=== PATIENT | male | born 1955 | race American Indian/Alaskan Native ===

== ENCOUNTER 2018-10-27 14:22 | Inpatient (IN) | payer SELFPAY ==
--- NOTE | 2018-10-27 15:25 | Emergency Department Report ---
Addendum entered and electronically signed by MARYBETH PEÑA MD 10/27/18 22:19: [facility] [address] [place] [address] Cat Scan Report Signed Patient: ARTHUR SCHULER MR#: [id number] : 1955 Acct:[id number] Age/Sex: 63 / M ADM Date: 10/27/18 Loc: 4A A463-[address]: LINDA KENNEY MD Ordering Physician: AMANDA BANKS MD Date of Service: 10/27/18 Procedure(s): CT abdomen pelvis w con Accession Number(s): [id number] cc: AMANDA BANKS MD FINAL REPORT PROCEDURE: CT ABDOMEN PELVIS W CON TECHNIQUE: Computerized axial tomography of the abdomen and pelvis was performed after the IV injection of iodinated nonionic contrast. HISTORY: fall ams abd pain syncope COMPARISON: No prior studies are available for comparison. FINDINGS: This study is limited due to streak artifacts from the arms. Liver, spleen, and adrenal glands are within normal limits. Small simple appearing cystic lesions are noted in bilateral kidneys. Otherwise bilateral kidneys demonstrate normal enhancement without hydronephrosis or perinephric fluid collection. Aorta is of normal caliber. There is no free fluid or free air. Gallbladder is unremarkable. Small bowel loops are within normal limits. Moderate degree residual stool is noted. Appendix is normal. There is evidence of prior small bowel surgery in the right upper quadrant. Vertebral height is normal. IMPRESSION: No acute intra-abdominal or pelvic visceral injury Transcribed By: [facility] [place]ictated By: PAIGE DRAPER Electronically Authenticated By: PAIGE DRAPER Signed Date/Time: 10/27/182215 DD/ 14 TD/TT: 10/27/182214 Addendum entered and electronically signed by MARYBETH PEÑA MD 10/27/18 22:18: [facility] [address] [place] [address] Cat Scan Report Signed Patient: ARTHUR SCHULER MR#: [id number] : 1955 Acct:[id number] Age/Sex: 63 / M ADM Date: 10/27/18 Loc: ED Attending Dr: Ordering Physician: AMANDA BANKS MD Date of Service: 10/27/18 Procedure(s): CT head/brain wo con Accession Number(s): [id number] cc: AMANDA BANKS MD FINAL REPORT EXAM: CT HEAD/BRAIN WO CON HISTORY: fall ams TECHNIQUE: 2.5 millimeter axial images from the skullbase to the vertex. Comparison: None FINDINGS: There is no evidence of an acute intracranial process, intracranial hemorrhage or mass effect. Ventricular size is concordant with the degree of atrophy. The visu alized portions of the orbits, paranasal and mastoid sinuses are unremarkable. The bony structures are unremarkable. There is no evidence of fracture. IMPRESSION: 1. No evidence of an acute intracranial process, intracranial hemorrhage or mass effect. 2. No evidence of fracture. Transcribed By: ED D ictated By: MAKENZIE GARDNER MD Electronically Authenticated By: MAKENZIE GARDNER MD Signed Date/Time: 10/27/181819 DD/ 17 TD/TT: 10/27/181817 Original Note: <AMANDA BANKS - Last Filed: 10/27/18 19:32> ED General Adult HPI - General Chief complaint: Altered Mental Status Stated complaint: AMS Time Seen by Provider: 10/27/18 14:58 Source: patient, EMS (ems notes not available at time of chart dictation), RN notes reviewed Mode of arrival: Stretcher Limitations: Altered Mental Status - History of Present Illness Initial comments: This is a 63-year-old gentleman who is not known to this provider previously. He has a history of hypertension, dementia and behavioral disturbances. As per triage documentation, patient was found on the floor by a certified nurse malt specifications control assistant unresponsive. The patient apparently became more alert during transport. Only complained of arthritis prehospital. In the emergency room, the patient has no recollection of what happened. On review of systems, he endorses abdominal pain that moves up to his shoulder blades and chest pain. He can't describe the nature of the pain, qualitative nature of the pain, exacerbating or relieving factors. No family or friends currently available for collateral information. The patient is asking to eat currently. -: unknown Location: chest, abdomen Severity scale (0 -10): 10 Consistency: other Improves with: other Worsens with: other Associated Symptoms: confusion, chest pain, other - Related Data Allergies Allergy/AdvReac Type Severity Reaction Status Date / Time No Known Allergies Allergy Unverified 10/27/18 14:42 ED Review of Systems Comment: Unobtainable due to pts medical conditions Cardiovascular: chest pain Gastrointestinal: abdominal pain Musculoskeletal: myalgia ED Past Medical Hx - Past Medical History Hx Hypertension: Yes Hx Psychiatric Treatment: Yes (Dementia, Behavioral distr.) - Social History Smoking Status: Current Some Day Smoker Substance Use Type: Alcohol ED Physical Exam - General Limitations: Altered Mental Status General appearance: alert - Head Head exam: Present: atraumatic, normocephalic - Eye Eye exam: Present: normal appearance, EOMI, other (visual acuity intact to finger counting, color perception, reading at a close distance). Absent: nystagmus - ENT ENT exam: Present: normal exam, normal orophraynx, mucous membranes moist, normal external ear exam - Neck Neck exam: Present: normal inspection, full ROM. Absent: tenderness, meningismus - Respiratory Respiratory exam: Present: normal lung sounds bilaterally. Absent: respiratory distress - Cardiovascular Cardiovascular Exam: Present: regular rate, normal rhythm, normal heart sounds. Absent: bradycardia, tachycardia, irregular rhythm, systolic murmur, diastolic murmur, rubs, gallop - GI/Abdominal GI/Abdominal exam: Present: soft, other (Donnelly surgical scars noted, no redness, pus or streaking). Absent: distended, tenderness, guarding, rebound, rigid, pulsatile mass - Rectal Rectal exam: Present: deferred - Extremities Exam Extremities exam: Present: normal inspection, full ROM, other (2+ pulses noted in the bilateral upper, lower extremities. Compartments soft. No long bony tenderness. The pelvis is stable.). Absent: calf tenderness - Back Exam Back exam: Present: normal inspection, full ROM. Absent: tenderness, CVA tenderness (R), paraspinal tenderness, vertebral tenderness - Neurological Exam Neurological exam: Present: alert, abnormal gait (unsteady gait), other (Extraocular movements intact. Tongue midline. No facial droop. Facial s ensation intact to light touch in the V1, V2, V3 distribution bilaterally. 5 and 5 strength in 4 extremities.. Sensation is intact to light touch in 4 extremities.). Absent: motor sensory deficit - Skin Skin exam: Present: warm, dry, intact, normal color. Absent: rash ED Course - Reevaluation(s) Reevaluation #1: 10/27/18 19:30 Differential diagnosis, including not limited to: Intracranial injury, cervical spine injury, pneumonia, acute coronary syndrome, pulmonary embolus, intra-abdom inal infection, urinary tract infection, orthostasis, vagal event, structural cardiac disease Assessment and plan: 63-year-old gentleman, poor historian, demented, hypertension with behavioral disturbance, with prehospital report of unresponsiveness, now resolved, with an articulated complaint of chest pain and abdominal pain. The patient is a poor historian. His physical examination is unremarkable. He is protecting his airway at this time. He is not tachycardic. He is not hypoxic. Nevertheless, CT scan of the brain, cervical spine, chest, abdomen, pelvis urinalysis ordered and pending at this time. EKG limited by motion artifact. No prior for comparison. Reevaluation #2: 10/27/18 19:32 CT scan of the brain is negative for acute disease. CT scan of the cervical spine is negative for acute disease. Care is transferred to the oncoming ER physician, Dr. Peña, to follow up on urinalysis, CT scan of the chest, CT scan of abdomen and pelvis, repeat troponin, repeat EKG. Would prefer to admit the patient for cardiac risk stratification and syncope evaluation given that he is a poor historian, and is unlikely, unreliable to follow up as an outpatient. ED Medical Decision Making - Lab Data Result diagrams: 10/27/18 15:31 10/27/18 15:31 Vital Signs 10/27/18 10/27/18 10/27/18 14:34 15:22 15:45 Temperature 97.1 F L 98.5 F Pulse Rate 80 90 Respiratory 17 16 16 Rate Blood Pressure 158/93 O2 Sat by Pulse 99 98 Oximetry Lab Results 10/27/18 10/27/18 10/27/18 Range/Units 15:14 15:31 15:31 WBC 8.3 (4.5-11.0) K/mm3 RBC 4.45 (3.65-5.03) M/mm3 Hgb 13.2 (11.8-15.2) gm/dl Hct 38.7 (35.5-45.6) % MCV 87 (84-94) fl MCH 30 (28-32) pg MCHC 34 (32-34) % RDW 14.2 (13.2-15.2) % Plt Count 223 (140-440) K/mm3 Lymph % (Auto) 23.0 (13.4-35.0) % Finney % (Auto) 13.8 H (0.0-7.3) % Eos % (Auto) 2.8 (0.0-4.3) % Baso % (Auto) 0.8 (0.0-1.8) % Lymph # 1.9 (1.2-5.4) K/mm3 Finney # 1.2 H (0.0-0.8) K/mm3 Eos # 0.2 (0.0-0.4) K/mm3 Baso # 0.1 (0.0-0.1) K/mm3 Seg Neutrophils % 59.6 (40.0-70.0) % Seg Neutrophils # 5.0 (1.8-7.7) K/mm3 PT 14.1 (12.2-14.9) Sec. INR 1.03 (0.87-1.13) APTT 29.2 (24.2-36.6) Sec. Sodium (137-145) mmol/L Potassium (3.6-5.0) mmol/L Chloride (98-107) mmol/L Carbon Dioxide (22-30) mmol/L Anion Gap mmol/L BUN (9-20) mg/dL Creatinine (0.8-1.5) mg/dL Estimated GFR ml/min BUN/Creatinine Ratio % Glucose (75-100) mg/dL POC Glucose 133 H (70-105) Lactic Acid (0.7-2.0) mmol/L Calcium (8.4-10.2) mg/dL Magnesium (1.7-2.3) mg/dL Total Bilirubin (0.1-1.2) mg/dL AST (5-40) units/L ALT (7-56) units/L Alkaline Phosphatase (35-129) units/L Troponin T (0.00-0.029) ng/mL Total Protein (6.3-8.2) g/dL Albumin (3.9-5) g/dL Albumin/Globulin Ratio % Lipase (13-60) units/L TSH (0.270-4.200) mlU/mL Salicylates (2.8-20.0) mg/dL Acetaminophen (10.0-30.0) ug/mL Plasma/Serum Alcohol (0-0.07) % 10/27/18 10/27/18 10/27/18 Range/Units 15:31 15:31 15:31 WBC (4.5-11.0) K/mm3 RBC (3.65-5.03) M/mm3 Hgb (11.8-15.2) gm/dl Hct (35.5-45.6) % MCV (84-94) fl MCH (28-32) pg MCHC (32-34) % RDW (13.2-15.2) % Plt Count (140-440) K/mm3 Lymph % (Auto) (13.4-35.0) % Finney % (Auto) (0.0-7.3) % Eos % (Auto) (0.0-4.3) % Baso % (Auto) (0.0-1.8) % Lymph # (1.2-5.4) K/mm3 Finney # (0.0-0.8) K/mm3 Eos # (0.0-0.4) K/mm3 Baso # (0.0-0.1) K/mm3 Seg Neutrophils % (40.0-70.0) % Seg Neutrophils # (1.8-7.7) K/mm3 PT (12.2-14.9) Sec. INR (0.87-1.13) APTT (24.2-36.6) Sec. Sodium 139 (137-145) mmol/L Potassium 3.9 (3.6-5.0) mmol/L Chloride 103.5 (98-107) mmol/L Carbon Dioxide 25 (22-30) mmol/L Anion Gap 14 mmol/L BUN 9 (9-20) mg/dL Creatinine 0.6 L (0.8-1.5) mg/dL Estimated GFR > 60 ml/min BUN/Creatinine Ratio 15 % Glucose 122 H (75-100) mg/dL POC Glucose (70-105) Lactic Acid 1.20 (0.7-2.0) mmol/L Calcium 9.0 (8.4-10.2) mg/dL Magnesium 2.00 (1.7-2.3) mg/dL Total Bilirubin 0.80 (0.1-1.2) mg/dL AST 16 (5-40) units/L ALT 14 (7-56) units/L Alkaline Phosphatase 58 (35-129) units/L Troponin T < 0.010 (0.00-0.029) ng/mL Total Protein 6.8 (6.3-8.2) g/dL Albumin 3.8 L (3.9-5) g/dL Albumin/Globulin Ratio 1.3 % Lipase 21 (13-60) units/L TSH 3.920 (0.270-4.200) mlU/mL Salicylates (2.8-20.0) mg/dL Acetaminophen (10.0-30.0) ug/mL Plasma/Serum Alcohol (0-0.07) % 10/27/18 10/27/18 10/27/18 Range/Units 15:31 15:31 15:31 WBC (4.5-11.0) K/mm3 RBC (3.65-5.03) M/mm3 Hgb (11.8-15.2) gm/dl Hct (35.5-45.6) % MCV (84-94) fl MCH (28-32) pg MCHC (32-34) % RDW (13.2-15.2) % Plt Count (140-440) K/mm3 Lymph % (Auto) (13.4-35.0) % Finney % (Auto) (0.0-7.3) % Eos % (Auto) (0.0-4.3) % Baso % (Auto) (0.0-1.8) % Lymph # (1.2-5.4) K/mm3 Finney # (0.0-0.8) K/mm3 Eos # (0.0-0.4) K/mm3 Baso # (0.0-0.1) K/mm3 Seg Neutrophils % (40.0-70.0) % Seg Neutrophils # (1.8-7.7) K/mm3 PT (12.2-14.9) Sec. INR (0.87-1.13) APTT (24.2-36.6) Sec. Sodium (137-145) mmol/L Potassium (3.6-5.0) mmol/L Chloride (98-107) mmol/L Carbon Dioxide (22-30) mmol/L Anion Gap mmol/L BUN (9-20) mg/dL Creatinine (0.8-1.5) mg/dL Estimated GFR ml/min BUN/Creatinine Ratio % Glucose (75-100) mg/dL POC Glucose (70-105) Lactic Acid (0.7-2.0) mmol/L Calcium (8.4-10.2) mg/dL Magnesium (1.7-2.3) mg/dL Total Bilirubin (0.1-1.2) mg/dL AST (5-40) units/L ALT (7-56) units/L Alkaline Phosphatase (35-129) units/L Troponin T (0.00-0.029) ng/mL Total Protein (6.3-8.2) g/dL Albumin (3.9-5) g/dL Albumin/Globulin Ratio % Lipase (13-60) units/L TSH (0.270-4.200) mlU/mL Salicylates < 0.3 L (2.8-20.0) mg/dL Acetaminophen < 5.0 L (10.0-30.0) ug/mL Plasma/Serum Alcohol < 0.01 (0-0.07) % - EKG Data -: EKG Interpreted by La EKG shows normal: sinus rhythm Rate: normal - EKG Data When compared to previous EKG there are: previous EKG unavailable 10/27/18 19:33 Artifact, sinus, 81 bpm, borderline left axis deviation, poor R wave progression, sinus, not consistent with ST elevation myocardial infarction, ther e is no prior EKG available for comparison. - Radiology Data Radiology results: pending, report reviewed Noncontrast CT scan of the brain is negative for acute disease. Noncontrast CT scan of the cervical spine is negative for acute disease. ED Disposition Clinical Impression: Syncope Qualifiers: Syncope type: unspecified Qualified Code(s): R55 - Syncope and collapse Chest pain Qualifiers: Chest pain type: unspecified Qualified Code(s): R07.9 - Chest pain, unspecified Disposition: 09 OP ADMIT IP TO THIS HOSP Condition: Stable Instructions: Syncope (ED), Chest Pain (ED) Referrals: PRIMARY CAREMD [Primary Care Provider] - 3-5 Days <MARYBETH PEÑA - Last Filed: 10/27/18 21:34> ED Review of Systems ROS: Stated complaint: AMS Other details as noted in HPI ED Course Vital Signs 10/27/18 10/27/18 10/27/18 14:34 15:22 15:45 Temperature 97.1 F L 98.5 F Pulse Rate 80 90 Respiratory 17 16 16 Rate Blood Pressure 158/93 O2 Sat by Pulse 99 98 Oximetry ED Medical Decision Making - Lab Data Result diagrams: 10/27/18 15:31 10/27/18 15:31 - Medical Decision Making Patient is a 63-year-old [place]ales[place] male who had a syncopal episode/episode of loss of consciousness and unresponsiveness at home earlier today. When the patient regained consciousness is complaining of some chest discomfort. Patient to be admitted to the hospitalist service at this time. His CT is within normal limits. CTA of the chest pending.. Dr Kenney aware Critical Care Time: Yes (30) Critical care attestation.: If time is entered above; I have spent that time in minutes in the direct care of this critically ill patient, excluding procedure time. ED Disposition Is pt being admited?: Yes Time of Disposition: 21:34
[2018-10-27 16:05] LABS: Basophils # (Auto) 0.1 K/mm3 (0.0-0.1); Basophils % (Auto) 0.8 % (0.0-1.8); Eosinophils # (Auto) 0.2 K/mm3 (0.0-0.4); Eosinophils % (Auto) 2.8 % (0.0-4.3); Hematocrit 38.7 % (35.5-45.6); Hemoglobin 13.2 gm/dl (11.8-15.2); Lymphocytes # (Auto) 1.9 K/mm3 (1.2-5.4); Mean Corpuscular HGB Conc 34 % (32-34); Mean Corpuscular Volume 87 fl (84-94); Monocytes # (Auto) 1.2 K/mm3 (0.0-0.8); Monocytes % (Auto) 13.8 % (0.0-7.3); Platelet Count 223 K/mm3 (140-440); Red Blood Count 4.45 M/mm3 (3.65-5.03); Red Cell Distribution Width 14.2 % (13.2-15.2)
[2018-10-27 16:19] LABS: INR 1.03 (0.87-1.13)
[2018-10-27 16:20] LABS: Partial Thromboplastin Time 29.2 Sec. (24.2-36.6)
[2018-10-27 16:27] LABS: Alanine Aminotransferase 14 units/L (7-56); Albumin 3.8 g/dL (3.9-5); BUN/Creatinine Ratio 15; Blood Urea Nitrogen 9 mg/dL (9-20); Hemolysis Index 26
--- NOTE | 2018-10-27 18:20 | Cat Scan Report ---
FINAL REPORT EXAM: CT HEAD/BRAIN WO CON HISTORY: fall ams TECHNIQUE: 2.5 millimeter axial images from the skullbase to the vertex. Comparison: None FINDINGS: There is no evidence of an acute intracranial process, intracranial hemorrhage or mass effect. Ventricular size is concordant with the degree of atrophy. The visualized portions of the orbits, paranasal and mastoid sinuses are unremarkable. The bony structures are unremarkable. There is no evidence of fracture. IMPRESSION: 1. No evidence of an acute intracranial process, intracranial hemorrhage or mass effect. 2. No evidence of fracture.
[2018-10-27] MEDS ORDERED: ATIVAN IV ONE (18:45)
[2018-10-27] MEDS ORDERED: ATIVAN ONE (18:55)
[2018-10-27 20:00] LABS: Bilirubin,Urine SM (Negative); Blood,Urine NEG (Negative); Color,Urine Amber (Yellow); Mucus,Urine 3+ /HPF
[2018-10-27 20:09] LABS: Ictotest,Urine Negative (Negative)
--- NOTE | 2018-10-27 22:16 | Cat Scan Report ---
FINAL REPORT PROCEDURE: CT ABDOMEN PELVIS W CON TECHNIQUE: Computerized axial tomography of the abdomen and pelvis was performed after the IV inject ion of iodinated nonionic contrast. HISTORY: fall ams abd pain syncope COMPARISON: No prior studies are available for comparison. FINDINGS: This study is limited due to streak artifacts from the arms. Liver, spleen, and adrenal glands are wi thin normal limits. Small simple appearing cystic lesions are noted in bilateral kidneys. Otherwise b ilateral kidneys demonstrate normal enhancement without hydronephrosis or perinephric fluid collectio n. Aorta is of normal caliber. There is no free fluid or free air. Gallbladder is unremarkable. Small bowel loops are within normal limits. Moderate degree residual stool is noted. Appendix is normal. T here is evidence of prior small bowel surgery in the right upper quadrant. Vertebral height is normal . IMPRESSION: No acute intra-abdominal or pelvic visceral injury
[2018-10-27] MEDS ORDERED: NARCAN 0.4 MG/1 ML IV ONE (22:25)
[2018-10-27] MEDS ORDERED: TYLENOL PO PRN (22:27)
[2018-10-27] MEDS ORDERED: ZOFRAN IV PRN (22:29)
[2018-10-28 01:05] LABS: Creatine Kinase MB 2.4 ng/mL (0.0-4.0)
[2018-10-28 06:01] LABS: Creatine Kinase MB 2.7 ng/mL (0.0-4.0)
--- NOTE | 2018-10-28 08:01 | History and Physical Report ---
CHIEF COMPLAINT: Altered mental status. HISTORY OF PRESENT ILLNESS: The patient is a 63-year-old male who was found on the floor unresponsive by a nurse at the facility where the patient is staying. It was not clear how long the patient was on the ground. There was no history of chest pain. There was no history of shortness of breath, nausea, vomiting, fever, or history of abdominal pain prior to being unresponsive. The patient was brought to the Emergency Room and did not remember what happened and was not able to give proper account of how he ended up on the floor, but the patient was pointing to abdominal pain that moves up to his shoulder blades. PAST MEDICAL HISTORY: Pertinent for hypertension and dementia. PAST SURGICAL HISTORY: Noncontributory. FAMILY HISTORY: Noncontributory. SOCIAL HISTORY: The patient smokes cigarettes, drinks alcohol. Does not use illicit drugs. MEDICATIONS: The patient's home medications are not known at this time. ALLERGIES: There are no known drug allergies. REVIEW OF SYSTEMS: CONSTITUTIONAL: There is no fever, no chills, no diaphoresis. HEENT: There is no headache or sore throat. CARDIOVASCULAR SYSTEM: There is no chest pain or orthopnea. RESPIRATORY SYSTEM: There is no shortness of breath or cough. GASTROINTESTINAL SYSTEM: There is no nausea, no vomiting. Abdominal pain present. No diarrhea or constipation. NEUROLOGICAL SYSTEM: Unresponsiveness with altered mental status noted. MUSCULOSKELETAL SYSTEM: There is no joint pain or swelling. DERMATOLOGICAL SYSTEM: There is no skin rash or itching. GENITOURINARY SYSTEM: There is no dysuria, hematuria, or flank pain. Rest of system review is normal. PHYSICAL EXAMINATION: GENERAL: At the time of exam, the patient was found to lethargic and responding to noxious stimulus and not in acute distress. VITAL SIGNS: At the initial time of presentation showed temperature of 97.1 degrees Fahrenheit, pulse of 80, respirations 17, blood pressure 158/93, O2 sat of 99% on room air. HEENT: Show pupils to be pinpoint and reactive to light and accommodating. Extraocular muscles are intact. NECK: Supple with no JVD or carotid bruit. CARDIOVASCULAR SYSTEM: Showed normal first and second heart sounds with no gallops or murmurs. RESPIRATORY SYSTEM: Show good air entry on both sides of the lungs with no abnormal breath sounds. GASTROINTESTINAL SYSTEM: Show abdomen to be full, soft, nontender with no organomegaly or rigidity. NEUROLOGIC: Shows no focal deficits. MUSCULOSKELETAL SYSTEM: Show no joint swelling or tenderness. DERMATOLOGICAL SYSTEM: Show no skin rash. GENITOURINARY SYSTEM: Showing no costovertebral angle tenderness. PERTINENT LABORATORY DATA AND IMAGING STUDIES: The patient has CT of the abdomen and pelvis done that shows no acute intra-abdominal or pelvic viscera injury. Also, the patient has CT of the cervical spine done with results pending and also the patient has CT angiogram of the chest done with result pending. The patient had a CT of the head without contrast done that shows no evidence of an acute intracranial process or intracranial hemorrhage or mass effect and no evidence of fracture was seen. Lab results: The patient had CBC done that came back unremarkable except for elevated monocyte count of 13.8 on CBC differential. The patient's coagulation studies were unremarkable and chemistry came back unremarkable. The patient's cardiac enzymes came back unremarkable. Urinalysis show elevated urine specific gravity of 1.058, otherwise unremarkable urine. Toxicology was unremarkable. DIAGNOSES: 1. Unresponsiveness. 2. Abdominal pain. 3. Chest pain. PLAN OF ACTION: 1. The patient will be admitted to telemetry. 2. The patient will have Cardiology consult with Dr. Angus Ridley because of chest pain and unresponsiveness. 3. The patient will have cardiac enzymes involving troponin checked serially x 2 more levels. 4. The patient will have 2D echo done this morning because of unresponsiveness and chest pain. 5. The patient will have a urine drug screen done. 6. The patient will have one dose of Narcan or naloxone 0.4 mg done because of suspected narcotic overdose. 7. The patient will be on nitro paste half inch to anterior chest wall q.i.d. because of chest pain and will be on IV Zofran 4 mg every 8 hours as needed for nausea and vomiting. 8. The patient will be on aspirin 325 mg by mouth daily and will be on oxygen by nasal cannula 2 liter per minute. JOB# [id number] OCN/NTS
--- NOTE | 2018-10-28 10:45 | Event Note ---
Date: 10/28/18 full consult dictated thx
[2018-10-28] MEDS: NACL 0.9% 1000 ML 1,000 ML IV SCH (13:51)
[2018-10-28] MEDS: ASPIRIN PO SCH (14:01)
--- NOTE | 2018-10-28 16:47 | Progress Note ---
Assessment and Plan Assessment and plan: Patient is a 63 yo Black Man from [place] with a history of hypertension and dementia with behavior disturbances who presented to [facility] ED after being found unresponsive on the floor by nurse aid at the [place]. Patient is confused and poor historian. * CT abd/pelvis with contrast IMPRESSION: No acute intra-abdominal or pelvic visceral injury * CT head wo contrast IMPRESSION: 1. No evidence of an acute intracranial process, intracranial hemorrhage or mass effect. 2. No evidence of fracture. * CTA chest pending * CT c-spine pending * 2D ECHO study quality is technically difficult, poor accoustic windows, global left ventricular wall motion and contractility are within normal limits, estimated EF 50-55%, left ventricular diastolic filling pattern is consistent with pseudonormalization -Acute metabolic encephalopathy, work up in progress -Chest pains by report: Cardiology consulted -Advance Dementia; supportive care prolonged inpatient services 32 minutes History Interval history: Patient was seen and examined. Follow-up on current diagnosis of AMS. Overnight uneventful. Patient denies any chest pain, shortness breath, nausea/vomiting or severe headaches. Imaging, nursing note, chart, labs and old chart reviewed. Discussed with patient. Hospitalist Physical - Physical exam Narrative exam: Gen: WDWN, NAD, Awake, Alert, Orientated x 1 HEENT: NCAT, EOMI, PERRL, OP Clear Neck: supple, no adenopathy, no thyromegaly, no JVD CVS/Heart: RRR, normal S1S2, pulses present bilaterally Chest/Lungs: CTA B, Symmetrical chest expansion, good air entry bilaterally GI/Abdomen: soft, NTND, good bowel sounds, no guarding or rebound /Bladder: no suprapubic tenderness, no CVA or paraspinal tenderness Extermity/Skin: no c/c/e, no obvious rash MSK: FROM x 4 Neuro: CN 2-12 grossly intact, no new focal deficits Psych: confused - Constitutional Vitals: Temp Pulse Resp BP Pulse Ox 97.0 F L 70 18 153/90 97 10/28/18 04:09 10/28/18 10:00 10/28/18 04:09 10/28/18 04:09 10/28/18 04:09 Results - Labs CBC & Chem 7: 10/27/18 15:31 10/27/18 15:31 Labs: Laboratory Last Values WBC 8.3 K/mm3 (4.5-11.0) 10/27/18 15: RBC 4.45 M/mm3 (3.65-5.03) 10/27/18 15: Hgb 13.2 gm/dl (11.8-15.2) 10/27/18 15: Hct 38.7 % (35.5-45.6) 10/27/18 15: MCV 87 fl (84-94) 10/27/18: MCH 30 pg (28-32) 10/27/18 15: MCHC 34 % (32-34) 10/27/18 15: RDW 14.2 % (13.2-15.2) 10/27/18: Plt Count 223 K/mm3 (140-440) 10/27/18: Lymph % (Auto) 23.0 % (13.4-35.0) 10/27/18: [place] % (Auto) 13.8 % (0.0-7.3) H 10/27/18: Eos % (Auto) 2.8 % (0.0-4.3) 10/27/18: Baso % (Auto) 0.8 % (0.0-1.8) 10/27/18: Lymph # 1.9 K/mm3 (1.2-5.4) 10/27/18 15: [place] # 1.2 K/mm3 (0.0-0.8) H 10/27/18: Eos # 0.2 K/mm3 (0.0-0.4) 10/27/18: Baso # 0.1 K/mm3 (0.0-0.1) 10/27/18 15: Seg Neutrophils % 59.6 % (40.0-70.0) 10/27/18: Seg Neutrophils # 5.0 K/mm3 (1.8-7.7) 10/27/18 15: PT 14.1 Sec. (12.2-14.9) 10/27/18 15: INR 1.03 (0.87-1.13) 10/27/18 15: APTT 29.2 Sec. (24.2-36.6) 10/27/18 15:31 Sodium 139 mmol/L (137-145) 10/27/18 15:31 Potassium 3.9 mmol/L (3.6-5.0) 10/27/18 15:31 Chloride 103.5 mmol/L (98-107) 10/27/18 15:31 Carbon Dioxide 25 mmol/L (22-30) 10/27/18 15:31 Anion Gap 14 mmol/L 10/27/18 15:31 BUN 9 mg/dL (9-20) 10/27/18 15:31 Creatinine 0.6 mg/dL (0.8-1.5) L 10/27/18 15:31 Estimated GFR > 60 ml/min 10/27/18 15:31 BUN/Creatinine Ratio 15 % 10/27/18 15:31 Glucose 122 mg/dL (75-100) H 10/27/18 15:31 POC Glucose 133 (70-105) H 10/27/18 15:14 Lactic Acid 1.20 mmol/L (0.7-2.0) 10/27/18 15:31 Calcium 9.0 mg/dL (8.4-10.2) 10/27/18 15:31 Magnesium 2.00 mg/dL (1.7-2.3) 10/27/18 15:31 Total Bilirubin 0.80 mg/dL (0.1-1.2) 10/27/18 15:31 AST 16 units/L (5-40) 10/27/18 15:31 ALT 14 units/L (7-56) 10/27/18 15:31 Alkaline Phosphatase 58 units/L (35-129) 10/27/18 15:31 Total Creatine Kinase 193 units/L (55-170) H 10/28/18 05:03 CK-MB (CK-2) 2.7 ng/mL (0.0-4.0) 10/28/18 05:03 CK-MB (CK-2) Rel Index 1.3 (0-4) 10/28/18 05:03 Troponin T < 0.010 ng/mL (0.00-0.029) 10/28/18 05:03 Total Protein 6.8 g/dL (6.3-8.2) 10/27/18 15:31 Albumin 3.8 g/dL (3.9-5) L 10/27/18 15:31 Albumin/Globulin Ratio 1.3 % 10/27/18 15:31 Lipase 21 units/L (13-60) 10/27/18 15:31 TSH 3.920 mlU/mL (0.270-4.200) 10/27/18 15:31 Urine Color [place] (Yellow) 10/27/18 19:34 Urine Turbidity Clear (Clear) 10/27/18 19:34 Urine pH 5.0 (5.0-7.0) 10/27/18 19:34 Ur Specific [place] 1.058 (1.003-1.030) H 10/27/18 19:34 Urine Protein 30 mg/dl mg/dL (Negative) 10/27/18 19:34 Urine Glucose (UA) Neg mg/dL (Negative) 10/27/18 19:34 Urine Ketones Neg mg/dL (Negative) 10/27/18 19:34 Urine Blood Neg (Negative) 10/27/18 19:34 Urine Nitrite Neg (Negative) 10/27/18 19:34 Urine Bilirubin Sm (Negative) 10/27/18 19:34 Urine Ictotest Negative (Negative) 10/27/18 19:34 Urine Urobilinogen 4.0 mg/dL (<2.0) 10/27/18 19:34 Ur Leukocyte Esterase Neg (Negative) 10/27/18 19:34 Urine WBC (Auto) 3.0 /HPF (0.0-6.0) 10/27/18 19:34 Urine RBC (Auto) 3.0 /HPF (0.0-6.0) 10/27/18 19:34 Urine Mucus 3+ /HPF 10/27/18 19:34 Salicylates < 0.3 mg/dL (2.8-20.0) L 10/27/18 15:31 Acetaminophen < 5.0 ug/mL (10.0-30.0) L 10/27/18 15:31 Plasma/Serum Alcohol < 0.01 % (0-0.07) 10/27/18 15:31 Nutrition/Malnutrition Assess - Dietary Evaluation Nutrition/Malnutrition Findings: Nutrition Notes Start: 10/28/18 10:43 Freq: Status: Active Protocol: Document 10/28/18 10:43 ER (Rec: 10/28/18 10:51 ER [id number]) Co-Sign 10/28/18 10:43 LP Nutrition Notes Need for Assessment generated from: document control manager Initial or Follow up Brief Note Current Diagnosis Hypertension Other Pertinent Diagnosis AMS, dementia Current Diet Cardiac Diet Subjective/Other Information RN screen for MST. Pt. ate 100 % of breakfast. Unable to obtain weight or energy intake history from pt. d/t pt. having AMS. Pt. does not appear to be malnourished. Nutrition Intervention Follow-Up By: 11/01/18 Revisit per MD consult or patient Sign Off request: Additional Comments F/U: Assessment needs and intakes
[2018-10-28] MEDS: GEODON IM PRN (21:45)
--- NOTE | 2018-10-28 21:59 | Consultation ---
CARDIOLOGY CONSULTATION REFERRING PHYSICIAN: Dr. Juarez REASON FOR CONSULTATION: Advice and opinion regarding change in orientation, questionable chest pain. HISTORY OF PRESENT ILLNESS: The patient is a 63-year-old -[place] gentleman referred here from [place]. He has dementia, behavioral disturbance. He is incoherent, comfortable, responses to questions and states he has no symptoms whatsoever, seen on telemetry, not able to give a history, entirely disoriented, but does deny chest pain or shortness of breath. Now appears comfortable in bed, nurse is at bedside as well. So history is obtained as per chart. ALLERGIES: No known drug, food, or environmental allergies. REVIEW OF SYSTEMS: As per HPI. No rashes, leg swelling, hematochezia, melena, or hemoptysis. SOCIAL HISTORY: Smoker, occasional alcohol use. His underlying psychiatric disorder is unknown or is unknown to me at this time. FAMILY HISTORY: Unknown. PHYSICAL EXAMINATION: VITAL SIGNS: Blood pressure is 150/90, he is afebrile. Tele reveals sinus rhythm in the 60s, O2 sat is 100% on room air. GENERAL: This is a middle-aged -Sudanese gentleman, no apparent distress, oriented x 3. HEENT: Sclerae are anicteric. NECK: Supple. No mass or JVD. CHEST: Clear to auscultation bilaterally. Good air movement. CARDIOVASCULAR: ____ rhythm, S1, S2. ABDOMEN: Soft, nontender, nondistended. Normoactive bowel sounds in all 4 quadrants. No mass or bruits. EXTREMITIES: No cyanosis, clubbing or edema. Good peripheral pulses. SKIN: Intact. No rashes. LABORATORY DATA AND IMAGING STUDIES: ECG reveals normal sinus rhythm, normal axis, no ST segment shift, heart rate of 68. Cardiac enzymes are negative x 2. CBC and CMP are essentially unremarkable aside from elevated glucose. Toxicology is negative for salicylates, acetaminophen and alcohol. He underwent a head CT, which is unremarkable. CT abdomen and pelvis is also unremarkable. CT cervical spine is also unremarkable. ASSESSMENT: In summary, the patient is a 63-year-old gentleman, 1. Unresponsiveness. 2. Question of abdominal pain. 3. Questionable chest pain. PLAN: He is clinically stable, very poor historian due to dementia and behavioral disturbances, unknown psychiatric diagnosis, appears comfortable. Echocardiogram is pending. EKG is unremarkable. Cardiac enzymes are negative x 2. Given his mental state, I believe a conservative approach is reasonable and appropriate. I do not see any need for any further testing from a cardiac perspective. We will follow along. Thank you for this consultation. Continue baby aspirin. Thank you for this consultation. We will be happy to follow along with you. JOB# [id number] SBM/NTS
[2018-10-28] MEDS ORDERED: APRESOLINE IV PRN (22:23)
[2018-10-29] MEDS: NITRO-BID 2% TP SCH ×5 (01:02→18:31)
[2018-10-29] MEDS: ASPIRIN PO SCH (10:30)
--- NOTE | 2018-10-29 10:45 | Progress Note ---
Assessment and Plan Assessment: Unresponsiveness AMS Questionable abdominal pain Questionable chest pain Dementia ? Psych d/o Plan: AMI ruled out. Echo reviewed - TDS, EF 50-55%, pseudonormalization. Currently stable cardiac status. Nothing further to add from cardiac perspective at this time. Will sign off. The patient has been seen in conjunction with Dr. Carlos Enrique Solano who agrees with the assessment and plan of care. Subjective Date of service: 10/29/18 Principal diagnosis: AMS Interval history: pt resting in bed, confused, restrained, no apparent distress. Objective Last Vital Signs Temp 98.3 F 10/29/18 08:30 Pulse 80 10/29/18 10:30 Resp 18 10/29/18 08:30 BP 169/98 10/29/18 10:30 Pulse Ox 99 10/29/18 08:43 - Physical Examination General: No Apparent Distress HEENT: Positive: PERRL, Normocephaly, Mucus Membranes Moist Neck: Positive: neck supple, trachea midline Cardiac: Positive: Reg Rate and Rhythm, S1/S2 Lungs: Positive: clear to auscultation Neuro: Positive: Grossly Intact, Other (confused) Abdomen: Negative: Tender Skin: Negative: Rash Musculoskeletal: No Pain Extremities: Absent: edema - Telemetry EKG Rhythm: Sinus Rhythm
--- NOTE | 2018-10-29 15:28 | Progress Note ---
Assessment and Plan Assessment and plan: Patient is a 63 yo Black Man from [place] with a history of hypertension and dementia with behavior disturbances who presented to [facility] ED after being found unresponsive on the floor by nurse aid at the [place]. Patient is confused and poor historian. * CT abd/pelvis with contrast IMPRESSION: No acute intra-abdominal or pelvic visceral injury * CT head wo contrast IMPRESSION: 1. No evidence of an acute intracranial process, intracranial hemorrhage or mass effect. 2. No evidence of fracture. * CTA chest pending==> * CT c-spine pending * 2D ECHO study quality is technically difficult, poor accoustic windows, global left ventricular wall motion and contractility are within normal limits, estimated EF 50-55%, left ventricular diastolic filling pattern is consistent with pseudonormalization -Acute metabolic encephalopathy -Chest pains by report: Cardiology consulted and signed off, no workup needed -Advance Dementia; supportive care History Interval history: Patient was seen and examined. Follow-up on current diagnosis of AMS. Overnight uneventful. Patient denies any chest pain, shortness breath, nausea/vomiting or severe headaches. Imaging, nursing note, chart, labs and old chart reviewed. Discussed with patient. Hospitalist Physical - Physical exam Narrative exam: Gen: WDWN, NAD, Awake, Alert, Orientated x 1 HEENT: NCAT, EOMI, PERRL, OP Clear Neck: supple, no adenopathy, no thyromegaly, no JVD CVS/Heart: RRR, normal S1S2, pulses present bilaterally Chest/Lungs: CTA B, Symmetrical chest expansion, good air entry bilaterally GI/Abdomen: soft, NTND, good bowel sounds, no guarding or rebound /Bladder: no suprapubic tenderness, no CVA or paraspinal tenderness Extermity/Skin: no c/c/e, no obvious rash MSK: FROM x 4 Neuro: CN 2-12 grossly intact, no new focal deficits Psych: confused - Constitutional Vitals: Temp Pulse Resp BP Pulse Ox 98.8 F 85 18 146/89 96 10/29/18 11:39 10/29/18 11:39 10/29/18 11:39 10/29/18 11:39 10/29/18 11:39 Results - Labs CBC & Chem 7: 10/27/18 15:31 10/27/18 15:31 Labs: Laboratory Last Values WBC 8.3 K/mm3 (4.5-11.0) 10/27/18 15: RBC 4.45 M/mm3 (3.65-5.03) 10/27/18 15: Hgb 13.2 gm/dl (11.8-15.2) 10/27/18 15: Hct 38.7 % (35.5-45.6) 10/27/18 15: MCV 87 fl (84-94) 10/27/18: MCH 30 pg (28-32) 10/27/18 15: MCHC 34 % (32-34) 10/27/18 15: RDW 14.2 % (13.2-15.2) 10/27/18: Plt Count 223 K/mm3 (140-440) 10/27/18 15: Lymph % (Auto) 23.0 % (13.4-35.0) 10/27/18 15: [place] % (Auto) 13.8 % (0.0-7.3) H 10/27/18 15: Eos % (Auto) 2.8 % (0.0-4.3) 10/27/18: Baso % (Auto) 0.8 % (0.0-1.8) 10/27/18 15: Lymph # 1.9 K/mm3 (1.2-5.4) 10/27/18 15: [place] # 1.2 K/mm3 (0.0-0.8) H 10/27/18: Eos # 0.2 K/mm3 (0.0-0.4) 10/27/18: Baso # 0.1 K/mm3 (0.0-0.1) 10/27/18 15: Seg Neutrophils % 59.6 % (40.0-70.0) 10/27/18: Seg Neutrophils # 5.0 K/mm3 (1.8-7.7) 10/27/18 15: PT 14.1 Sec. (12.2-14.9) 10/27/18 15: INR 1.03 (0.87-1.13) 10/27/18 15: APTT 29.2 Sec. (24.2-36.6) 02/13/19 15:31 Sodium 139 mmol/L (137-145) 10/27/18 15:31 Potassium 3.9 mmol/L (3.6-5.0) 10/27/18 15:31 Chloride 103.5 mmol/L (98-107) 10/27/18 15:31 Carbon Dioxide 25 mmol/L (22-30) 10/27/18 15:31 Anion Gap 14 mmol/L 10/27/18 15:31 BUN 9 mg/dL (9-20) 10/27/18 15:31 Creatinine 0.6 mg/dL (0.8-1.5) L 10/27/18 15:31 Estimated GFR > 60 ml/min 10/27/18 15:31 BUN/Creatinine Ratio 15 % 10/27/18 15:31 Glucose 122 mg/dL (75-100) H 10/27/18 15:31 POC Glucose 133 (70-105) H 10/27/18 15:14 Lactic Acid 1.20 mmol/L (0.7-2.0) 10/27/18 15:31 Calcium 9.0 mg/dL (8.4-10.2) 10/27/18 15:31 Magnesium 2.00 mg/dL (1.7-2.3) 10/27/18 15:31 Total Bilirubin 0.80 mg/dL (0.1-1.2) 10/27/18 15:31 AST 16 units/L (5-40) 10/27/18 15:31 ALT 14 units/L (7-56) 10/27/18 15:31 Alkaline Phosphatase 58 units/L (35-129) 10/27/18 15:31 Total Creatine Kinase 193 units/L (55-170) H 10/28/18 05:03 CK-MB (CK-2) 2.7 ng/mL (0.0-4.0) 10/28/18 05:03 CK-MB (CK-2) Rel Index 1.3 (0-4) 10/28/18 05:03 Troponin T < 0.010 ng/mL (0.00-0.029) 10/28/18 05:03 Total Protein 6.8 g/dL (6.3-8.2) 10/27/18 15:31 Albumin 3.8 g/dL (3.9-5) L 10/27/18 15:31 Albumin/Globulin Ratio 1.3 % 10/27/18 15:31 Lipase 21 units/L (13-60) 10/27/18 15:31 TSH 3.920 mlU/mL (0.270-4.200) 10/27/18 15:31 Urine Color [place] (Yellow) 10/27/18 19:34 Urine Turbidity Clear (Clear) 10/27/18 19:34 Urine pH 5.0 (5.0-7.0) 10/27/18 19:34 Ur Specific [place] 1.058 (1.003-1.030) H 10/27/18 19:34 Urine Protein 30 mg/dl mg/dL (Negative) 10/27/18 19:34 Urine Glucose (UA) Neg mg/dL (Negative) 10/27/18 19:34 Urine Ketones Neg mg/dL (Negative) 10/27/18 19:34 Urine Blood Neg (Negative) 10/27/18 19:34 Urine Nitrite Neg (Negative) 10/27/18 19:34 Urine Bilirubin Sm (Negative) 10/27/18 19:34 Urine Ictotest Negative (Negative) 10/27/18 19:34 Urine Urobilinogen 4.0 mg/dL (<2.0) 10/27/18 19:34 Ur Leukocyte Esterase Neg (Negative) 10/27/18 19:34 Urine WBC (Auto) 3.0 /HPF (0.0-6.0) 10/27/18 19:34 Urine RBC (Auto) 3.0 /HPF (0.0-6.0) 10/27/18 19:34 Urine Mucus 3+ /HPF 10/27/18 19:34 Salicylates < 0.3 mg/dL (2.8-20.0) L 10/27/18 15:31 Acetaminophen < 5.0 ug/mL (10.0-30.0) L 10/27/18 15:31 Plasma/Serum Alcohol < 0.01 % (0-0.07) 10/27/18 15:31 Nutrition/Malnutrition Assess - Dietary Evaluation Nutrition/Malnutrition Findings: Nutrition Notes Start: 10/28/18 10:43 Freq: Status: Active Protocol: Document 10/28/18 10:43 ER (Rec: 10/28/18 10:51 ER [id number]) Co-Sign 10/28/18 10:43 LP Nutrition Notes Need for Assessment generated from: conservator artifacts Initial or Follow up Brief Note Current Diagnosis Hypertension Other Pertinent Diagnosis AMS, dementia Current Diet Cardiac Diet Subjective/Other Information RN screen for MST. Pt. ate 100 % of breakfast. Unable to obtain weight or energy intake history from pt. d/t pt. having AMS. Pt. does not appear to be malnourished. Nutrition Intervention Follow-Up By: 11/01/18 Revisit per MD consult or patient Sign Off request: Additional Comments F/U: Assessment needs and intakes
--- NOTE | 2018-10-29 15:33 | Discharge Summary ---
Providers - Providers Date of Admission: 10/27/18 21:35 Date of discharge: 11/01/18 Attending physician: SERAFIN ONEILL 10/28/18 06:00 Consult to Physician [CONS] Routine Comment: Consulting Provider: ISIDRA BURRELL Physician Instructions: Reason For Exam: CHEST PAIN AND UNRESPONSIVENESS Primary care physician: RATTLING MACHINE TENDER Hospitalization Condition: Stable Hospital course: Patient is a 63 yo Black Man from [facility] with a history of hypertension and dementia with behavior disturbances who presented to [facility] ED after being found unresponsive on the floor by nurse aid at the psych facility. Patient is confused and poor historian. * CT abd/pelvis with contrast IMPRESSION: No acute intra-abdominal or pelvic visceral injury * CT head wo contrast IMPRESSION: 1. No evidence of an acute intracranial process, intracranial hemorrhage or mass effect. 2. No evidence of fracture. * CTA chest in [facility], in the physical chart * CT c-spine in [facility], in the physical chart * 2D ECHO study quality is technically difficult, poor accoustic windows, global left ventricular wall motion and contractility are within normal limits, estimated EF 50-55%, left ventricular diastolic filling pattern is consistent with pseudonormalization -Acute metabolic encephalopathy -Fall and possible syncope -Chest pains by report: Cardiology consulted and signed off, no workup needed -Advance Dementia; supportive care -Hypertension urgency: iv hydralazine, d/c ntg paste, start norvasc and lisinopril Disposition: Transfer off tele, trying to discharge but difficulty in knowing his home. It appears [facility] discharged him to the hospital, unable to get in touch with son Gama PRINCE (number obtain by nurse called [place]) and his contact number is [phone]==>still no answer and voice mail not setup. Well it took a great effort from case management/social work msw to find out where Mr. Zeng was from He was discharge to [facility] Disposition: [id number] HOME UNDER [facility] Time spent for discharge: 34 minutes Core Measure Documentation - Palliative Care Palliative Care/ Comfort Measures: Not Applicable - Core Measures Any of the following diagnoses?: none - VTE Discharge Requirements Deep Vein Thrombosis/Pulmonary Embolism Present on Admission: No Has pt received <5 days of overlap therapy or INR<2.0: No Anticoagulant overlap therapy prescribed at discharge: No Contraindication No Overlap Therapy order at DC: Not Indicated Exam - Physical Exam Narrative exam: Gen: WDWN, NAD, Awake, Alert, Orientated x 1 HEENT: NCAT, EOMI, PERRL, OP Clear Neck: supple, no adenopathy, no thyromegaly, no JVD CVS/Heart: RRR, normal S1S2, pulses present bilaterally Chest/Lungs: CTA B, Symmetrical chest expansion, good air entry bilaterally GI/Abdomen: soft, NTND, good bowel sounds, no guarding or rebound /Bladder: no suprapubic tenderness, no CVA or paraspinal tenderness Extermity/Skin: no c/c/e, no obvious rash MSK: FROM x 4 Neuro: CN 2-12 grossly intact, no new focal deficits Psych: confused - Constitutional Vitals: Temp Pulse Resp BP Pulse Ox 98.8 F 85 18 146/89 96 10/29/18 11:39 10/29/18 11:39 10/29/18 11:39 10/29/18 11:39 10/29/18 11:39 Plan Activity: up only with assistance, fall precautions, other (no strenous activity ) Diet: advance as tolerated Follow up with: PRIMARY CARE, [Primary Care Provider] - 3-5 Days
[2018-10-29] MEDS: NACL 0.9% 1000 ML 1,000 ML IV SCH (18:31)
[2018-10-30] MEDS: NITRO-BID 2% TP SCH (05:47)
[2018-10-30] MEDS ORDERED: APRESOLINE IV PRN (09:35)
--- NOTE | 2018-10-30 09:43 | Progress Note ---
Assessment and Plan Assessment and plan: Patient is a 63 yo Black Man from [facility] with a history of hypertension and dementia with behavior disturbances who presented to [facility] ED after being found unresponsive on the floor by nurse aid at the psych facility. Patient is confused and poor historian. * CT abd/pelvis with contrast IMPRESSION: No acute intra-abdominal or pelvic visceral injury * CT head wo contrast IMPRESSION: 1. No evidence of an acute intracranial process, intracranial hemorrhage or mass effect. 2. No evidence of fracture. * CTA chest pending==> * CT c-spine pending * 2D ECHO study quality is technically difficult, poor accoustic windows, global left ventricular wall motion and contractility are within normal limits, estimated EF 50-55%, left ventricular diastolic filling pattern is consistent with pseudonormalization -Acute metabolic encephalopathy -Fall and possible syncope -Chest pains by report: Cardiology consulted and signed off, no workup needed -Advance Dementia; supportive care -Hypertension urgency: iv hydralazine, d/c ntg paste, start norvasc and lisinopril Disposition: transfer off tele, trying to discharge but difficulty in knowing his home. It appears [facility] facility discharged him to the hospital, History Interval history: Patient was seen and examined. Follow-up on current diagnosis of AMS. Overnight uneventful. Patient denies any chest pain, shortness breath, nausea/vomiting or severe headaches. Imaging, nursing note, chart, labs and old chart reviewed. Discussed with patient. Hospitalist Physical - Physical exam Narrative exam: Gen: WDWN, NAD, Awake, Alert, Orientated x 1 HEENT: NCAT, EOMI, PERRL, OP Clear Neck: supple, no adenopathy, no thyromegaly, no JVD CVS/Heart: RRR, normal S1S2, pulses present bilaterally Chest/Lungs: CTA B, Symmetrical chest expansion, good air entry bilaterally GI/Abdomen: soft, NTND, good bowel sounds, no guarding or rebound /Bladder: no suprapubic tenderness, no CVA or paraspinal tenderness Extermity/Skin: no c/c/e, no obvious rash MSK: FROM x 4 Neuro: CN 2-12 grossly intact, no new focal deficits Psych: confused - Constitutional Vitals: Temp Pulse Resp BP Pulse Ox 98.1 F 84 20 182/92 99 10/29/18 18:13 10/30/18 05:51 02/15/19 18:13 10/30/18 05:51 10/29/18 20:23 Results - Labs CBC & Chem 7: 10/27/18 15:31 10/27/18 15: Labs: Laboratory Last Values WBC 8.3 K/mm3 (4.5-11.0) 10/27/18 15: RBC 4.45 M/mm3 (3.65-5.03) 10/27/18 15: Hgb 13.2 gm/dl (11.8-15.2) 10/27/18 15: Hct 38.7 % (35.5-45.6) 10/27/18 15: MCV 87 fl (84-94) 10/27/18 15: MCH 30 pg (28-32) 10/27/18 15: MCHC 34 % (32-34) 10/27/18 15: RDW 14.2 % (13.2-15.2) 10/27/18 15: Plt Count 223 K/mm3 (140-440) 10/27/18 15: Lymph % (Auto) 23.0 % (13.4-35.0) 10/27/18 15: [place] % (Auto) 13.8 % (0.0-7.3) H 10/27/18 15: Eos % (Auto) 2.8 % (0.0-4.3) 10/27/18 15: Baso % (Auto) 0.8 % (0.0-1.8) 10/27/18 15: Lymph # 1.9 K/mm3 (1.2-5.4) 10/27/18 15: [place] # 1.2 K/mm3 (0.0-0.8) H 10/27/18 15: Eos # 0.2 K/mm3 (0.0-0.4) 10/27/18 15: Baso # 0.1 K/mm3 (0.0-0.1) 10/27/18 15: Seg Neutrophils % 59.6 % (40.0-70.0) 10/27/18 15: Seg Neutrophils # 5.0 K/mm3 (1.8-7.7) 10/27/18 15:31 PT 14.1 Sec. (12.2-14.9) 10/27/18 15:31 INR 1.03 (0.87-1.13) 10/27/18 15:31 APTT 29.2 Sec. (24.2-36.6) 10/27/18 15:31 Sodium 139 mmol/L (137-145) 10/27/18 15:31 Potassium 3.9 mmol/L (3.6-5.0) 10/27/18 15:31 Chloride 103.5 mmol/L (98-107) 10/27/18 15:31 Carbon Dioxide 25 mmol/L (22-30) 10/27/18 15:31 Anion Gap 14 mmol/L 10/27/18 15:31 BUN 9 mg/dL (9-20) 10/27/18 15:31 Creatinine 0.6 mg/dL (0.8-1.5) L 10/27/18 15:31 Estimated GFR > 60 ml/min 10/27/18 15:31 BUN/Creatinine Ratio 15 % 10/27/18 15:31 Glucose 122 mg/dL (75-100) H 10/27/18 15:31 POC Glucose 133 (70-105) H 10/27/18 15:14 Lactic Acid 1.20 mmol/L (0.7-2.0) 10/27/18 15:31 Calcium 9.0 mg/dL (8.4-10.2) 10/27/18 15:31 Magnesium 2.00 mg/dL (1.7-2.3) 10/27/18 15:31 Total Bilirubin 0.80 mg/dL (0.1-1.2) 10/27/18 15:31 AST 16 units/L (5-40) 10/27/18 15:31 ALT 14 units/L (7-56) 10/27/18 15:31 Alkaline Phosphatase 58 units/L (35-129) 10/27/18 15:31 Total Creatine Kinase 193 units/L (55-170) H 10/28/18 05:03 CK-MB (CK-2) 2.7 ng/mL (0.0-4.0) 10/28/18 05:03 CK-MB (CK-2) Rel Index 1.3 (0-4) 10/28/18 05:03 Troponin T < 0.010 ng/mL (0.00-0.029) 10/28/18 05:03 Total Protein 6.8 g/dL (6.3-8.2) 10/27/18 15:31 Albumin 3.8 g/dL (3.9-5) L 10/27/18 15:31 Albumin/Globulin Ratio 1.3 % 10/27/18 15: Lipase 21 units/L (13-60) 10/27/18 15: TSH 3.920 mlU/mL (0.270-4.200) 10/27/18 15:31 Urine Color [place] (Yellow) 10/27/18 19:34 Urine Turbidity Clear (Clear) 10/27/18 19: Urine pH 5.0 (5.0-7.0) 10/27/18 19: Ur Specific [place] 1.058 (1.003-1.030) H 10/27/18 19:34 Urine Protein 30 mg/dl mg/dL (Negative) 10/27/18 19:34 Urine Glucose (UA) Neg mg/dL (Negative) 10/27/18 19:34 Urine Ketones Neg mg/dL (Negative) 10/27/18 19:34 Urine Blood Neg (Negative) 10/27/18: Urine Nitrite Neg (Negative) 10/27/18 19:34 Urine Bilirubin Sm (Negative) 10/27/18 19: Urine Ictotest Negative (Negative) 10/27/18 19:34 Urine Urobilinogen 4.0 mg/dL (<2.0) 10/27/18 19:34 Ur Leukocyte Esterase Neg (Negative) 10/27/18 19:34 Urine WBC (Auto) 3.0 /HPF (0.0-6.0) 10/27/18 19:34 Urine RBC (Auto) 3.0 /HPF (0.0-6.0) 10/27/18 19:34 Urine Mucus 3+ /HPF 10/27/18 19:34 Salicylates < 0.3 mg/dL (2.8-20.0) L 10/27/18 15: Acetaminophen < 5.0 ug/mL (10.0-30.0) L 10/27/18 15: Plasma/Serum Alcohol < 0.01 % (0-0.07) 10/27/18 15:31 Nutrition/Malnutrition Assess - Dietary Evaluation Nutrition/Malnutrition Findings: Nutrition Notes Start: 10/28/18 10:43 Freq: Status: Active Protocol: Document 10/28/18 10:43 ER (Rec: 10/28/18 10:51 ER [id number]) Co-Sign 10/28/18 10:43 LP Nutrition Notes 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 Pt. ate 100 % of breakfast. Unable to obtain weight or energy intake history from pt. d/t pt. having AMS. Pt. does not appear to be malnourished. Nutrition Intervention Follow-Up By: 11/01/18 Revisit per MD consult or patient Sign Off request: Additional Comments F/U: Assessment needs and intakes
[2018-10-30] MEDS: ZESTRIL PO SCH (10:41)
[2018-10-30] MEDS: NORVASC PO SCH (10:42)
[2018-10-30] MEDS: ASPIRIN PO SCH (10:42)
[2018-10-31] MEDS: NACL 0.9% 1000 ML 1,000 ML IV SCH ×2 (06:15→22:01)
[2018-10-31] MEDS: ASPIRIN PO SCH (11:43)
[2018-10-31] MEDS: NORVASC PO SCH (11:46)
[2018-10-31] MEDS: ZESTRIL PO SCH (11:46)
--- NOTE | 2018-10-31 15:43 | Progress Note ---
Assessment and Plan Assessment and plan: Patient is a 63 yo Black Man from [facility] with a history of hypertension and dementia with behavior disturbances who presented to [facility] ED after being found unresponsive on the floor by nurse aid at the psych facility. Patient is confused and poor historian. * CT abd/pelvis with contrast IMPRESSION: No acute intra-abdominal or pelvic visceral injury * CT head wo contrast IMPRESSION: 1. No evidence of an acute intracranial process, intracranial hemorrhage or mass effect. 2. No evidence of fracture. * CTA chest in [facility] * CT c-spine in [facility] * 2D ECHO study quality is technically difficult, poor accoustic windows, global left ventricular wall motion and contractility are within normal limits, estimated EF 50-55%, left ventricular diastolic filling pattern is consistent with pseudonormalization -Acute metabolic encephalopathy -Fall and possible syncope -Chest pains by report: Cardiology consulted and signed off, no workup needed -Advance Dementia; supportive care -Hypertension urgency: iv hydralazine, d/c ntg paste, start norvasc and lisinopril Disposition: Transfer off tele, trying to discharge but difficulty in knowing his home. It appears [facility] facility discharged him to the hospital, unable to get in touch with son Gama PRINCE and his contact number is [phone]==>no answer and voice mail not setup. History Interval history: Patient was seen and examined. Follow-up on current diagnosis of AMS. Overnight uneventful. Patient denies any chest pain, shortness breath, nausea/vomiting or severe headaches. Imaging, nursing note, chart, labs and old chart reviewed. Discussed with patient. Hospitalist Physical - Physical exam Narrative exam: Gen: WDWN, NAD, Awake, Alert, Orientated x 1 HEENT: NCAT, EOMI, PERRL, OP Clear Neck: supple, no adenopathy, no thyromegaly, no JVD CVS/Heart: RRR, normal S1S2, pulses present bilaterally Chest/Lungs: CTA B, Symmetrical chest expansion, good air entry bilaterally GI/Abdomen: soft, NTND, good bowel sounds, no guarding or rebound /Bladder: no suprapubic tenderness, no CVA or paraspinal tenderness Extermity/Skin: no c/c/e, no obvious rash MSK: FROM x 4 Neuro: CN 2-12 grossly intact, no new focal deficits Psych: confused - Constitutional Vitals: Temp Pulse Resp BP Pulse Ox 99.0 F 68 16 115/68 97 10/31/18 11:45 10/31/18 11:46 10/31/18 11:45 10/31/18 11:46 10/31/18 11:45 Results - Labs CBC & Chem 7: 10/27/18 15:31 10/27/18 15:31 Labs: Laboratory Last Values WBC 8.3 K/mm3 (4.5-11.0) 10/27/18 15:31 RBC 4.45 M/mm3 (3.65-5.03) 10/27/18 15:31 Hgb 13.2 gm/dl (11.8-15.2) 10/27/18 15:31 Hct 38.7 % (35.5-45.6) 10/27/18 15:31 MCV 87 fl (84-94) 10/27/18 15:31 MCH 30 pg (28-32) 10/27/18 15:31 MCHC 34 % (32-34) 10/27/18 15:31 RDW 14.2 % (13.2-15.2) 10/27/18 15:31 Plt Count 223 K/mm3 (140-440) 10/27/18 15:31 Lymph % (Auto) 23.0 % (13.4-35.0) 10/27/18 15:31 [place] % (Auto) 13.8 % (0.0-7.3) H 10/27/18 15:31 Eos % (Auto) 2.8 % (0.0-4.3) 10/27/18 15:31 Baso % (Auto) 0.8 % (0.0-1.8) 10/27/18 15:31 Lymph # 1.9 K/mm3 (1.2-5.4) 10/27/18 15:31 [place] # 1.2 K/mm3 (0.0-0.8) H 10/27/18 15:31 Eos # 0.2 K/mm3 (0.0-0.4) 10/27/18 15:31 Baso # 0.1 K/mm3 (0.0-0.1) 10/27/18 15:31 Seg Neutrophils % 59.6 % (40.0-70.0) 10/27/18 15:31 Seg Neutrophils # 5.0 K/mm3 (1.8-7.7) 10/27/18 15:31 PT 14.1 Sec. (12.2-14.9) 10/27/18 15:31 INR 1.03 (0.87-1.13) 10/27/18 15:31 APTT 29.2 Sec. (24.2-36.6) 10/27/18 15:31 Sodium 139 mmol/L (137-145) 10/27/18 15:31 Potassium 3.9 mmol/L (3.6-5.0) 10/27/18 15:31 Chloride 103.5 mmol/L (98-107) 10/27/18 15:31 Carbon Dioxide 25 mmol/L (22-30) 10/27/18 15:31 Anion Gap 14 mmol/L 10/27/18 15:31 BUN 9 mg/dL (9-20) 10/27/18 15:31 Creatinine 0.6 mg/dL (0.8-1.5) L 10/27/18 15:31 Estimated GFR > 60 ml/min 10/27/18 15:31 BUN/Creatinine Ratio 15 % 10/27/18 15:31 Glucose 122 mg/dL (75-100) H 10/27/18 15:31 POC Glucose 138 (70-105) H 10/31/18 11:10 Lactic Acid 1.20 mmol/L (0.7-2.0) 10/27/18 15:31 Calcium 9.0 mg/dL (8.4-10.2) 10/27/18 15:31 Magnesium 2.00 mg/dL (1.7-2.3) 10/27/18 15:31 Total Bilirubin 0.80 mg/dL (0.1-1.2) 10/27/18 15:31 AST 16 units/L (5-40) 10/27/18 15:31 ALT 14 units/L (7-56) 10/27/18 15:31 Alkaline Phosphatase 58 units/L (35-129) 10/27/18 15:31 Total Creatine Kinase 193 units/L (55-170) H 10/28/18 05:03 CK-MB (CK-2) 2.7 ng/mL (0.0-4.0) 10/28/18 05:03 CK-MB (CK-2) Rel Index 1.3 (0-4) 10/28/18 05:03 Troponin T < 0.010 ng/mL (0.00-0.029) 10/28/18 05:03 Total Protein 6.8 g/dL (6.3-8.2) 10/27/18 15:31 Albumin 3.8 g/dL (3.9-5) L 10/27/18 15:31 Albumin/Globulin Ratio 1.3 % 10/27/18 15:31 Lipase 21 units/L (13-60) 10/27/18 15:31 TSH 3.920 mlU/mL (0.270-4.200) 10/27/18 15:31 Urine Color [place] (Yellow) 10/27/18 19:34 Urine Turbidity Clear (Clear) 10/27/18 19:34 Urine pH 5.0 (5.0-7.0) 10/27/18 19:34 Ur Specific [place] 1.058 (1.003-1.030) H 10/27/18 19:34 Urine Protein 30 mg/dl mg/dL (Negative) 10/27/18 19:34 Urine Glucose (UA) Neg mg/dL (Negative) 10/27/18 19:34 Urine Ketones Neg mg/dL (Negative) 10/27/18 19:34 Urine Blood Neg (Negative) 10/27/18 19:34 Urine Nitrite Neg (Negative) 10/27/18 19:34 Urine Bilirubin Sm (Negative) 10/27/18 19:34 Urine Ictotest Negative (Negative) 10/27/18 19:34 Urine Urobilinogen 4.0 mg/dL (<2.0) 10/27/18 19:34 Ur Leukocyte Esterase Neg (Negative) 10/27/18 19:34 Urine WBC (Auto) 3.0 /HPF (0.0-6.0) 10/27/18 19:34 Urine RBC (Auto) 3.0 /HPF (0.0-6.0) 10/27/18 19:34 Urine Mucus 3+ /HPF 10/27/18 19:34 Salicylates < 0.3 mg/dL (2.8-20.0) L 10/27/18 15: Acetaminophen < 5.0 ug/mL (10.0-30.0) L 10/27/18 15:31 Plasma/Serum Alcohol < 0.01 % (0-0.07) 10/27/18 15:31 Nutrition/Malnutrition Assess - Dietary Evaluation Nutrition/Malnutrition Findings: Nutrition Notes Start: 10/28/18 10:43 Freq: Status: Active Protocol: Document 10/28/18 10:43 ER (Rec: 10/28/18 10:51 ER [id number]) Co-Sign 10/28/18 10:43 LP Nutrition Notes Need for Assessment generated from: pilot [employer] Initial or Follow up Brief Note Current Diagnosis Hypertension Other Pertinent Diagnosis AMS, dementia Current Diet Cardiac Diet Subjective/Other Information RN screen for MST. Pt. ate 100 % of breakfast. Unable to obtain weight or energy intake history from pt. d/t pt. having AMS. Pt. does not appear to be malnourished. Nutrition Intervention Follow-Up By: 11/01/18 Revisit per MD consult or patient Sign Off request: Additional Comments F/U: Assessment needs and intakes
[2018-11-01] MEDS ORDERED: WATER FOR INJ (PF) ONE (03:09)
[2018-11-01] MEDS: GEODON IM PRN (03:14)
[2018-11-01] MEDS: NORVASC PO SCH (10:29)
[2018-11-01] MEDS: ZESTRIL PO SCH (10:30)
[2018-11-01] MEDS: ASPIRIN PO SCH (10:30)
--- NOTE | 2018-11-01 11:50 | Progress Note ---
Assessment and Plan Assessment and plan: Patient is a 63 yo Black Man from [facility] with a history of hypertension and dementia with behavior disturbances who presented to [facility] ED after being found unresponsive on the floor by nurse aid at the psych facility. Patient is confused and poor historian. * CT abd/pelvis with contrast IMPRESSION: No acute intra-abdominal or pelvic visceral injury * CT head wo contrast IMPRESSION: 1. No evidence of an acute intracranial process, intracranial hemorrhage or mass effect. 2. No evidence of fracture. * CTA chest in [facility], in the physical chart * CT c-spine in [facility], in the physical chart * 2D ECHO study quality is technically difficult, poor accoustic windows, global left ventricular wall motion and contractility are within normal limits, estimated EF 50-55%, left ventricular diastolic filling pattern is consistent with pseudonormalization -Acute metabolic encephalopathy -Fall and possible syncope -Chest pains by report: Cardiology consulted and signed off, no workup needed -Advance Dementia; supportive care -Hypertension urgency: iv hydralazine, d/c ntg paste, start norvasc and lisinopril Disposition: Transfer off tele, trying to discharge but difficulty in knowing his home. It appears [facility] facility discharged him to the hospital, unable to get in touch with son Gama PRINCE (number obtain by nurse called [facility]) and his contact number is [phone]==>still no answer and voice m ail not setup. History Interval history: Patient was seen and examined. Follow-up on current diagnosis of AMS. Overnight uneventful. Patient denies any chest pain, shortness breath, nausea/vomiting or severe headaches. Imaging, nursing note, chart, labs and old chart reviewed. Discussed with patient. Hospitalist Physical - Physical exam Narrative exam: Gen: WDWN, NAD, Awake, Alert, Orientated x 1 HEENT: NCAT, EOMI, PERRL, OP Clear Neck: supple, no adenopathy, no thyromegaly, no JVD CVS/Heart: RRR, normal S1S2, pulses present bilaterally Chest/Lungs: CTA B, Symmetrical chest expansion, good air entry bilaterally GI/Abdomen: soft, NTND, good bowel sounds, no guarding or rebound /Bladder: no suprapubic tenderness, no CVA or paraspinal tenderness Extermity/Skin: no c/c/e, no obvious rash MSK: FROM x 4 Neuro: CN 2-12 grossly intact, no new focal deficits Psych: confused - Constitutional Vitals: Temp Pulse Resp BP Pulse Ox 98.2 F 80 20 134/77 94 11/01/18 05:50 11/01/18 10:30 11/01/18 05:50 11/01/18 10:30 11/01/18 05:50 Results - Labs CBC & Chem 7: 10/27/18 15:31 10/27/18 15:31 Labs: Laboratory Last Values WBC 8.3 K/mm3 (4.5-11.0) 10/27/18 15: RBC 4.45 M/mm3 (3.65-5.03) 10/27/18 15: Hgb 13.2 gm/dl (11.8-15.2) 10/27/18 15:31 Hct 38.7 % (35.5-45.6) 10/27/18 15:31 MCV 87 fl (84-94) 10/27/18 15:31 MCH 30 pg (28-32) 10/27/18 15:31 MCHC 34 % (32-34) 10/27/18 15:31 RDW 14.2 % (13.2-15.2) 10/27/18 15:31 Plt Count 223 K/mm3 (140-440) 10/27/18 15:31 Lymph % (Auto) 23.0 % (13.4-35.0) 10/27/18 15:31 [place] % (Auto) 13.8 % (0.0-7.3) H 10/27/18 15:31 Eos % (Auto) 2.8 % (0.0-4.3) 10/27/18 15:31 Baso % (Auto) 0.8 % (0.0-1.8) 10/27/18 15:31 Lymph # 1.9 K/mm3 (1.2-5.4) 10/27/18 15:31 [place] # 1.2 K/mm3 (0.0-0.8) H 10/27/18 15:31 Eos # 0.2 K/mm3 (0.0-0.4) 10/27/18 15: Baso # 0.1 K/mm3 (0.0-0.1) 10/27/18 15:31 Seg Neutrophils % 59.6 % (40.0-70.0) 10/27/18 15:31 Seg Neutrophils # 5.0 K/mm3 (1.8-7.7) 10/27/18 15:31 PT 14.1 Sec. (12.2-14.9) 10/27/18 15:31 INR 1.03 (0.87-1.13) 10/27/18 15:31 APTT 29.2 Sec. (24.2-36.6) 10/27/18 15:31 Sodium 139 mmol/L (137-145) 10/27/18 15:31 Potassium 3.9 mmol/L (3.6-5.0) 10/27/18 15:31 Chloride 103.5 mmol/L (98-107) 10/27/18 15:31 Carbon Dioxide 25 mmol/L (22-30) 10/27/18 15:31 Anion Gap 14 mmol/L 10/27/18 15:31 BUN 9 mg/dL (9-20) 10/27/18 15:31 Creatinine 0.6 mg/dL (0.8-1.5) L 10/27/18 15:31 Estimated GFR > 60 ml/min 10/27/18 15:31 BUN/Creatinine Ratio 15 % 10/27/18 15:31 Glucose 122 mg/dL (75-100) H 10/27/18 15:31 POC Glucose 95 (70-105) 10/31/18 21:56 Lactic Acid 1.20 mmol/L (0.7-2.0) 10/27/18 15:31 Calcium 9.0 mg/dL (8.4-10.2) 10/27/18 15:31 Magnesium 2.00 mg/dL (1.7-2.3) 10/27/18 15:31 Total Bilirubin 0.80 mg/dL (0.1-1.2) 10/27/18 15:31 AST 16 units/L (5-40) 10/27/18 15:31 ALT 14 units/L (7-56) 10/27/18 15:31 Alkaline Phosphatase 58 units/L (35-129) 10/27/18 15:31 Total Creatine Kinase 193 units/L (55-170) H 10/28/18 05:03 CK-MB (CK-2) 2.7 ng/mL (0.0-4.0) 10/28/18 05:03 CK-MB (CK-2) Rel Index 1.3 (0-4) 10/28/18 05:03 Troponin T < 0.010 ng/mL (0.00-0.029) 10/28/18 05:03 Total Protein 6.8 g/dL (6.3-8.2) 10/27/18 15:31 Albumin 3.8 g/dL (3.9-5) L 10/27/18 15:31 Albumin/Globulin Ratio 1.3 % 10/27/18 15: Lipase 21 units/L (13-60) 10/27/18 15:31 TSH 3.920 mlU/mL (0.270-4.200) 10/27/18 15:31 Urine Color [place] (Yellow) 10/27/18 19:34 Urine Turbidity Clear (Clear) 10/27/18 19:34 Urine pH 5.0 (5.0-7.0) 10/27/18 19:34 Ur Specific [place] 1.058 (1.003-1.030) H 10/27/18 19:34 Urine Protein 30 mg/dl mg/dL (Negative) 10/27/18 19:34 Urine Glucose (UA) Neg mg/dL (Negative) 10/27/18 19:34 Urine Ketones Neg mg/dL (Negative) 10/27/18 19:34 Urine Blood Neg (Negative) 10/27/18 19:34 Urine Nitrite Neg (Negative) 10/27/18 19:34 Urine Bilirubin Sm (Negative) 10/27/18 19:34 Urine Ictotest Negative (Negative) 10/27/18 19:34 Urine Urobilinogen 4.0 mg/dL (<2.0) 10/27/18 19:34 Ur Leukocyte Esterase Neg (Negative) 10/27/18 19:34 Urine WBC (Auto) 3.0 /HPF (0.0-6.0) 10/27/18 19:34 Urine RBC (Auto) 3.0 /HPF (0.0-6.0) 10/27/18 19:34 Urine Mucus 3+ /HPF 10/27/18 19:34 Salicylates < 0.3 mg/dL (2.8-20.0) L 10/27/18 15:31 Acetaminophen < 5.0 ug/mL (10.0-30.0) L 10/27/18 15:31 Plasma/Serum Alcohol < 0.01 % (0-0.07) 10/27/18 15:31 Nutrition/Malnutrition Assess - Dietary Evaluation Nutrition/Malnutrition Findings: Nutrition Notes Start: 10/28/18 10:43 Freq: Status: Active Protocol: Document 10/28/18 10:43 ER (Rec: 10/28/18 10:51 ER [id number]) Co-Sign 10/28/18 10:43 LP Nutrition Notes Need for Assessment generated from: auto wash buffer Initial or Follow up Brief Note Current Diagnosis Hypertension Other Pertinent Diagnosis AMS, dementia Current Diet Cardiac Diet Subjective/Other Information RN screen for MST. Pt. ate 100 % of breakfast. Unable to obtain weight or energy intake history from pt. d/t pt. having AMS. Pt. does not appear to be malnourished. Nutrition Intervention Follow-Up By: 11/01/18 Revisit per MD consult or patient Sign Off request: Additional Comments F/U: Assessment needs and intakes
[2018-11-01] MEDS: NACL 0.9% 1000 ML 1,000 ML IV SCH (12:55)
--- NOTE | 2018-11-01 14:05 | Cat Scan Report ---
FINAL REPORT EXAM: CT CERVICAL SPINE WO CON HISTORY: fall ams TECHNIQUE: Standard CT cervical spine obtained at 2.5 mm axial increments. Coronal and sagittal rec onstruction was also performed. PRIORS: None. FINDINGS: The vertebral bodies are intact. There is no evidence for acute fracture. There is no evidence for paravertebral soft tissue swelling. Alignment is maintained. There is generalized mild narrowing of the disc spaces throughout the cervical spine. Bilateral neura l foraminal narrowing at C3-C4 is seen due to posterior spurring. Numerous small bulla are present in each lung apex. IMPRESSION: No acute abnormality of the cervical spine. Degenerative disc changes throughout the cervical spine.
--- NOTE | 2018-11-01 14:09 | Cat Scan Report ---
FINAL REPORT EXAM: CT ANGIO CHEST HISTORY: fall AMS? syncope ? chest pain TECHNIQUE: Enhanced CT of the chest at 1.25 mm axial intervals following a pulmonary embolism protoc ol. Coronal and sagittal imaging were also obtained. Coronal oblique MIP projections were obtained. PRIORS: None. FINDINGS: There is no evidence for pulmonary embolism in the main pulmonary artery, right and left pulmonary ar teries or their major distributions. However, CT does not exclude distal pulmonary emboli. Small bulla are present in the apices of each lung. Linear atelectasis or scarring in each lung base is noted. Otherwise, the lung parenchyma are expanded and clear with no evidence for parenchymal nodu les, consolidation, congestion, or pleural effusion. There is no evidence for mediastinal, hilar, or axillary adenopathy. Cardiovascular structures are within normal limits. No evidence for ventricular chamber enlargement is seen. Images through the lung bases include the upper abdomen which show no abnormalities of the visualized abdominal viscera. Bony structures demonstrate no focal abnormalities. IMPRESSION: No evidence for pulmonary embolism. Small bulla in each apex suggesting underlying emphysema. Linear atelectasis or scarring in each lung base.
[2018-11-01 18:29] VITALS: BP 148/84
== END 2018-11-01 19:05 | disposition home or self-care (01) | DRG 304 ==
LOC: ED 14:22 → 4A 21:35 → 3A 10-30 21:12
PROVIDERS: ADMIT Internal Medicine; ATTEND Internal Medicine
DX: I16.0 Hypertensive urgency (principal); G93.41 Metabolic encephalopathy; F03.91 Unspecified dementia, unspecified severity, with behavioral disturbance; R55 Syncope and collapse; I10 Essential (primary) hypertension; F17.210 Nicotine dependence, cigarettes, uncomplicated; Z72.89 Other problems related to lifestyle
CPT/HCPCS: 36415; 70450; 71275; 72125; 74177; 80053; 80320; 81001; 82140; 82550; 82553; 82962; 83690; 83735; 84443; 84484; 85025; 85610; 85730; 87040; 87086; 93005; 93010; 93306; 96374; 96375; 99291; 99406; G0378; G0480; J0360; J2060; J2310; J3486; J7030; Q9967